=== PATIENT | male | born 1995 | race Caucasian/White ===

== ENCOUNTER 2024-01-25 14:17 | Emergency (ER) | payer SELFPAY ==
[~2024-01-25] VITALS: Ht 170.2 cm; Wt 63.5 kg
[2024-01-25 14:26] VITALS: O2SAT 100
[2024-01-25] MEDS: IBUPROFEN 600MG TABLET PO ONE (15:45)
[2024-01-25] MEDS ORDERED: CYCL10TA21 MT (15:46)
[2024-01-25] MEDS ORDERED: IBUP-2029 MT (15:46)
[2024-01-25 17:20] VITALS: BP 123/78; PULSE 80; RESP 18; TEMP 36.61404; O2SAT 100
== END 2024-01-25 17:39 | disposition home or self-care (01) ==
LOC: ER 14:17
DX: S70.01XA Contusion of right hip, initial encounter (principal); W18.39XA Other fall on same level, initial encounter; Y93.89 Activity, other specified; Y92.89 Other specified places as the place of occurrence of the external cause; Y99.8 Other external cause status
CPT/HCPCS: 73522; 99283